=== PATIENT | female | born 1950 | race African-American/Black ===

== ENCOUNTER 2019-11-22 23:51 | Inpatient (IN) ==
[2019-11-23] MEDS ORDERED: CEFEPIME 1,000 MG in SODIUM CHLORIDE 0.9% 100 ML IV STA (00:44)
[2019-11-23 01:10] LABS: Apearance,Urine Slightly Hazy (Clear); Bacteria,Urine Many /HPF (Few); Bilirubin,Urine Negative (Negative); Blood, Urine Negative (Negative); Glucose,Urine (UA) Negative (Negative); Hyaline Casts,Urine 4 /LPF (0-3); Ketones,Urine Negative (Negative); Mucus,Urine Moderate /LPF (Occasional); Nitrite,Urine Positive (Negative); Protein,Urine 30 MG/DL; RBC,Urine 2 /HPF (0-4); Squamous Epithelial Cell,Urine Occasional /HPF (0-10); Urine Color Amber (Yellow); Urine Specific Gravity 1.026 (1.001-1.035); WBC,Urine 8 /HPF (0-6)
[2019-11-23 01:11] LABS: Barbiturates Screen,Urine Negative (Negative); Benzodiazepines Screen,Urine Negative (Negative); Cannabinoid Screen,Urine Negative (Negative); Opiate Screen,Urine Negative (Negative); Phencyclidine Screen,Urine Negative (Negative)
[2019-11-23 01:38] LABS: PT Patient Result 10.3 SECS (9.8-11.9)
[2019-11-23 01:43] LABS: Basophils % 0.2 % (0.0-0.8); Hematocrit 36.6 VOL% (35.7-47.0); Hemoglobin 10.7 GM/DL (12.0-16.0); Immature Granulocytes % 1.2 %; Lymphocytes # 1.6 10*3/uL (1.4-4.0); Lymphocytes % 19.7 % (21.3-54.2); Mean Corpuscular HGB Conc 29.2 GM/DL (32-36); Mean Platelet Volume 10.5 FL (9.6-12.0); Monocytes % 8.4 % (1.7-12.7); Neutrophils % 70.5 % (38.7-73.9); Platelet Count 138 T/CUMM (130-400); Red Blood Count 3.66 MC/CUMM (3.8-5.5); Red Cell Distribution Width 12.9 % (9.3-17.3); White Blood Count 8.3 T/CUMM (4-12)
[2019-11-23 02:16] LABS: Albumin 2.5 G/DL (3.4-5.0); Calcium 9.3 MG/DL (8.5-10.1); Ferritin 851.1 ng/ml (8-252); Osmolality,Calculated 330.9 MOS/KG (273-304)
[2019-11-23] MEDS ORDERED: SODIUM CHLORIDE 0.9% 1,000 ML IV STA (02:27)
[2019-11-23 02:57] LABS: Sedimentation Rate-Westergren 70 MM/HR (0-30)
[2019-11-23] MEDS ORDERED: GLUCAGON 1 MG VIAL IM PRN (03:16)
[2019-11-23] MEDS ORDERED: ONDANSETRON 4 MG/2 ML VIAL IV PRN (03:16)
[2019-11-23] MEDS ORDERED: ACETAMINOPHEN 325 MG TABLET PO PRN (03:16)
[2019-11-23] MEDS ORDERED: hydrALAZINE 20 MG/1 ML VIAL IV PRN (03:16)
[2019-11-23] MEDS ORDERED: SODIUM CHLORIDE 0.9% 1,000 ML IV SCH ×2 (03:30→04:30)
[2019-11-23] MEDS: cefTRIAXone 1,000 MG in SYRINGE 1 EACH IV SCH (06:45)
[2019-11-23 07:36] LABS: Calcium 9.1 MG/DL (8.5-10.1); Osmolality,Calculated 328.7 MOS/KG (273-304)
[2019-11-23] MEDS ORDERED: CEFEPIME 1,000 MG in SODIUM CHLORIDE 0.9% 100 ML IV SCH (08:00)
[2019-11-23] MEDS ORDERED: LACTULOSE 20 GM/30 ML UDCUP PO PRN (08:39)
[2019-11-23] MEDS ORDERED: MELOXICAM 7.5 MG TABLET PO SCH (09:00)
[2019-11-23] MEDS: ENOXAPARIN 40 MG/0.4 ML SYRINGE SUBCUT SCH (10:00)
[2019-11-23] MEDS: FAMOTIDINE 20 MG TABLET PO SCH (10:00)
[2019-11-23] MEDS: MEMANTINE 10 MG TABLET PO SCH ×2 (10:00→21:39)
[2019-11-23] MEDS: CALCIUM (CARBONATE)/VITAMIN D 600 MG-400 UNIT TABLET PO SCH ×2 (10:00→21:39)
[2019-11-23] MEDS: ASCORBIC ACID 500 MG TABLET PO SCH (10:00)
[2019-11-23] MEDS: busPIRone 10 MG TABLET PO SCH ×2 (10:00→21:39)
[2019-11-23] MEDS: ASPIRIN EC 81 MG TABLET PO SCH (10:00)
[2019-11-23] MEDS ORDERED: DEXTROSE 5% 1,000 ML IV SCH (12:30)
[2019-11-23 18:53] LABS: Calcium 8.6 MG/DL (8.5-10.1); Osmolality,Calculated 329.5 MOS/KG (273-304)
[2019-11-23 20:54] LABS: Calcium 7.9 MG/DL (8.5-10.1); Osmolality,Calculated 317.5 MOS/KG (273-304)
[2019-11-23] MEDS ORDERED: SODIUM CHLORIDE 0.45% 1,000 ML IV SCH (21:30)
[2019-11-23] MEDS ORDERED: INSULIN LISPRO 100 UNIT/ML SUBCUT ONE (21:30)
[2019-11-23] MEDS: DONEPEZIL 10 MG TABLET PO SCH (21:39)
[2019-11-23] MEDS: QUEtiapine 25 MG TABLET PO SCH (21:39)
[2019-11-23] MEDS: ATORVASTATIN 10 MG TABLET PO SCH (21:39)
[2019-11-23] MEDS: SENNA 8.6 MG TABLET PO SCH (21:59)
[2019-11-23 22:48] LABS: Calcium 7.6 MG/DL (8.5-10.1); Osmolality,Calculated 312.6 MOS/KG (273-304)
[2019-11-24] MEDS: DEXTROSE 10% 250 ML BAG IV PRN ×2 (00:29→03:50)
[2019-11-24] MEDS: DEXTROSE 5% 1,000 ML IV SCH ×2 (01:27→20:41)
[2019-11-24] MEDS: POTASSIUM CHLORIDE RIDER 10 MEQ in PREMIX 1 EACH IV PRN ×4 (02:23→09:50)
[2019-11-24 06:21] LABS: Basophils % 0.2 % (0.0-0.8); Eosinophils # 0.1 10*3/uL (0.0-0.87); Eosinophils % 1.1 % (0.00-10.9); Hematocrit 31.4 VOL% (35.7-47.0); Immature Granulocytes % 2.5 %; Immature Granulocytes Absolute 0.15 #; Lymphocytes # 1.4 10*3/uL (1.4-4.0); Lymphocytes % 23.2 % (21.3-54.2); Mean Corpuscular HGB Conc 28.3 GM/DL (32-36); Mean Corpuscular Volume 101.9 FL (87-102); Monocytes % 8.2 % (1.7-12.7); Neutrophils % 64.8 % (38.7-73.9); Platelet Count 134 T/CUMM (130-400); Red Blood Count 3.08 MC/CUMM (3.8-5.5); Red Cell Distribution Width 12.9 % (9.3-17.3); White Blood Count 6.1 T/CUMM (4-12)
[2019-11-24 06:23] LABS: Ferritin 693.7 ng/ml (8-252); Hemoglobin 8.9 GM/DL (12.0-16.0)
[2019-11-24 06:31] LABS: Band Neutrophils 1 % (0-10); Eosinophils 1 % (0-10); Hypochromasia 1+; Lymphocytes 25 % (20-55); Segmented Neutrophils 65 % (50-85); Total Cells Counted 100
[2019-11-24 06:32] LABS: Macrocytosis Slight; Platelet Estimate Adequate
[2019-11-24] MEDS: ENOXAPARIN 40 MG/0.4 ML SYRINGE SUBCUT SCH (08:09)
[2019-11-24] MEDS: MEMANTINE 10 MG TABLET PO SCH ×2 (08:09→20:42)
[2019-11-24] MEDS: ASPIRIN EC 81 MG TABLET PO SCH (08:09)
[2019-11-24] MEDS: cefTRIAXone 1,000 MG in SYRINGE 1 EACH IV SCH (08:09)
[2019-11-24] MEDS: busPIRone 10 MG TABLET PO SCH ×2 (08:09→20:41)
[2019-11-24] MEDS: FAMOTIDINE 20 MG TABLET PO SCH (08:09)
[2019-11-24] MEDS: CALCIUM (CARBONATE)/VITAMIN D 600 MG-400 UNIT TABLET PO SCH ×2 (08:09→20:41)
[2019-11-24] MEDS: ZINC GLUCONATE 50 MG TABLET PO SCH (08:10)
[2019-11-24] MEDS: ASCORBIC ACID 500 MG TABLET PO SCH (08:10)
[2019-11-24 08:26] LABS: Calcium 9.2 MG/DL (8.5-10.1)
[2019-11-24] MEDS: ATORVASTATIN 10 MG TABLET PO SCH (20:41)
[2019-11-24] MEDS: DONEPEZIL 10 MG TABLET PO SCH (20:41)
[2019-11-24] MEDS: SENNA 8.6 MG TABLET PO SCH (20:42)
[2019-11-24] MEDS: QUEtiapine 25 MG TABLET PO SCH (20:42)
[2019-11-25 06:36] LABS: Calcium 9.2 MG/DL (8.5-10.1); Osmolality,Calculated 307.6 MOS/KG (273-304)
[2019-11-25] MEDS: CALCIUM (CARBONATE)/VITAMIN D 600 MG-400 UNIT TABLET PO SCH (09:52)
[2019-11-25] MEDS: ZINC GLUCONATE 50 MG TABLET PO SCH (09:52)
[2019-11-25] MEDS: ENOXAPARIN 40 MG/0.4 ML SYRINGE SUBCUT SCH (09:52)
[2019-11-25] MEDS: ASPIRIN EC 81 MG TABLET PO SCH (09:52)
[2019-11-25] MEDS: busPIRone 10 MG TABLET PO SCH (09:52)
[2019-11-25] MEDS: MEMANTINE 10 MG TABLET PO SCH (09:52)
[2019-11-25] MEDS: FAMOTIDINE 20 MG TABLET PO SCH (09:52)
[2019-11-25] MEDS: cefTRIAXone 1,000 MG in SYRINGE 1 EACH IV SCH (09:52)
[2019-11-25] MEDS: ASCORBIC ACID 500 MG TABLET PO SCH (09:52)
[2019-11-25 13:55] VITALS: BP 116/62
[2019-11-28] MEDS ORDERED: ERGOCALCIFEROL 50,000 UNIT CAPSULE PO SCH (09:00)
== END 2019-11-25 15:30 | DRG 178 ==
LOC: N.ED 23:51 → INTOOBSV 11-23 03:16 → N.EDINP 11-23 03:16 → OBSVTOIN 11-23 03:16 → N.EDINP 11-23 04:05 → N.2W 11-23 05:39
PROVIDERS: ADMIT Hospitalist; ATTEND Hospitalist